=== PATIENT | male | born 1995 | race Caucasian/White ===

== ENCOUNTER 2016-12-26 14:48 | Emergency (ER) | payer MEDICAID ==
[~2016-12-26] VITALS: Ht 170.2 cm; Wt 83.9 kg
[2016-12-26 15:28] VITALS: BP 113/83
== END 2016-12-26 16:11 | disposition home or self-care (01) ==
LOC: ER 14:48
DX: L03.211 Cellulitis of face (principal); K02.9 Dental caries, unspecified

== ENCOUNTER 2017-02-26 06:38 | Emergency (ER) | payer MEDICAID ==
[~2017-02-26] VITALS: Ht 167.6 cm; Wt 81.6 kg
[2017-02-26 07:05] VITALS: BP 119/71
[2017-02-26] MEDS ORDERED: IBUPROFEN 800 MG TAB PO ONE (07:15)
[2017-02-26] MEDS ORDERED: LIDOCAINE VISCOUS 2% 15ML UD PO ONE (07:30)
== END 2017-02-26 08:19 | disposition home or self-care (01) ==
LOC: EDBD 06:38 → EDUNIT# 06:40 → ER 06:40
DX: J02.9 Acute pharyngitis, unspecified (principal)

== ENCOUNTER 2018-04-11 20:50 | Emergency (ER) | payer MEDICAID ==
[~2018-04-11] VITALS: Ht 177.8 cm; Wt 68.0 kg
[2018-04-11 21:07] VITALS: BP 136/82
== END 2018-04-11 23:29 | disposition left against medical advice (07) ==
LOC: EDBD 20:50 → ER 20:52
DX: M54.9 Dorsalgia, unspecified (principal); Z53.21 Procedure and treatment not carried out due to patient leaving prior to being seen by health care provider